=== PATIENT | male | born 1935 | race Asian ===

== ENCOUNTER 2022-04-27 19:35 | Emergency (ER) | payer MEDICARE, SELFPAY ==
--- NOTE | ~2022-04-27 | CT_ITS ---
EXAMINATION: CT HEAD WITHOUT CONTRAST (STROKE PROTOCOL) CLINICAL INFORMATION: Stroke protocol. Neurologic deficit COMPARISON: CT head 10/05/2014 TECHNIQUE: Contiguous axial imaging was performed from the skull base to vertex without intravenous administration of contrast. Coronal and sagittal reformatted images are performed at CT scanner This CT examination was performed using dose optimization techniques as appropriate, variously including the following: *Automated exposure control *Adjustment of mA and/or kV according to patient size (this includes techniques or standardized protocols for targeted exams where dose is matched to indication/reason for exam; i.e. extremities or head) *Use of iterative reconstruction technique DLP: 670 mGy-cm FINDINGS: There is a right frontal subdural collection measures approximately 1.5 cm transverse, axial image /32 series 3. This is primarily low in attenuation but does have small areas of high attenuation consistent with an acute on chronic subdural collection. This causes mass effect upon the adjacent frontal lobe. There is however no significant midline shift. There is generalized atrophy with mild prominence of the ventricles and sulci. There is mild hypodensity the periventricular white matter chronic small vessel ischemic disease. 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 No intracranial hemorrhage. No hydrocephalus. The visualized sinuses and middle ears and mastoid air cells show no significant mucosal thickening. There are no air-fluid levels. CT/CT head for stroke IMPRESSION: Right frontal subdural collection causing mass effect upon the right frontal lobe. 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 This critical result was discussed with Dr. Nunes. at 8:00 PM on 04/27/2022. It was ascertained that the content and urgency of the report was understood at the time of direct communication.
--- NOTE | ~2022-04-27 | CT_ITS ---
CT CERVICAL SPINE WITHOUT CONTRAST CLINICAL INFORMATION: Frequent falls. COMPARISON: None available. TECHNIQUE: Multidetector CT acquisition of the cervical spine obtained without contrast. This CT examination was performed using dose optimization techniques as appropriate, variously including the following: *Automated exposure control *Adjustment of mA and/or kV according to patient size (this includes techniques or standardized protocols for targeted exams where dose is matched to indication/reason for exam; i.e. extremities or head) *Use of iterative reconstruction technique FINDINGS: Reversal of the cervical lordosis. Mild degenerative appearing anterior subluxation of C7 on T1. Vertebral body heights are maintained. Moderate to severe disc volume loss at C4-C5, C5-C6, and C6-C7. Multilevel disc osteophyte and advanced multilevel hypertrophic facet arthropathy. No acute fractures no acute subluxations. Chronic appearing ossification of the ligamentum nuchae at C5. Craniocervical junction is intact. Imaged upper lungs are clear. Atherosclerotic calcification involving the carotid bifurcations bilaterally. There is no prevertebral soft tissue swelling. CT/CT cervical spine wo con IMPRESSION: No acute osseous findings within the cervical spine. Reversal of the cervical lordosis and advanced multilevel cervical spondylosis.
--- NOTE | 2022-04-27 19:43 | ECG_ITS ---
Test Reason : STROKE Blood Pressure : / mmHG Vent. Rate : 093 BPM Atrial Rate : 093 BPM P-R Int : 160 ms QRS Dur : 074 ms QT Int : 370 ms P-R-T Axes : 055 037 033 degrees QTc Int : 460 ms Sinus rhythm with occasional Premature ventricular complexes Left atrial enlargement Left ventricular hypertrophy ( Jeff product ) Inferior infarct , age undetermined Abnormal ECG When compared with ECG of 05-OCT-2016 10:13, Premature ventricular complexes are now Present Inferior infarct is now Present ST no longer depressed in Inferior leads Referred By: Sherlyn Nunes Electronically Signed By:FAIZAN HICKS
--- NOTE | 2022-04-27 19:53 | ED.NEUROSD ---
HPI - Neuro Symptoms/Deficit General Stated Complaint: STROKE ALERT Time Seen by Provider: 04/27/22 19:42 Source: patient, family, EMS and shaper set up operator (daughter interpreted georgian for me) Mode of arrival: EMS Limitations: altered mental status History of Present Illness HPI Narrative: 86 yo male with hx of HTN, dementia only on aspirin and not compliant with BP medications - noted L sided weakness and speech disturbance yesterday AM. He has been falling at home as well multiple times per the daughter. He takes no blood thinners. Onset (ago): hour(s) (30) Timing confirmed by: family member Location: speech, left face, dysarthria, left arm and left leg History of same: No Severity: moderate Quality: weak Relieving factors: none Exacerbating factors: none Context: sudden onset On Anticoagulants: No Associated symptoms: malaise Treatments Prior to Arrival: none Related Data Allergies Allergy/AdvReac Type Severity Reaction Status Date / Time Sulfa (Sulfonamide Allergy Unknown UNKNOWN Unverified 05/26/20 15:08 Antibiotics) [SULFA (SULFONAMIDE ANTIBIOTICS)] Review of Systems Review of Systems: ROS unable to be obtained due to altered mental status [facility] Past Medical History Attestation statement: The following information was validated with the patient. Medical History Dementia HTN (hypertension) Social History Social History (Updated 04/27/22 @ 20:06 by Sherlyn Nunes DO) Patient Tobacco Use Status: Never used Tobacco Advance Directives: No Physical Exam Vital Signs: Appearance: Alert. Confused has dementia. Mild acute distress. Eyes: Pupils equal, round and reactive to light. ENT: Pharynx normal. Neck: Normal inspection. Neck supple. CVS: Normal heart rate and rhythm. Pulses normal. Respiratory: No respiratory distress. Breath sounds normal. Abdomen: Soft and nontender. Skin: Skin warm and dry. Normal skin color. Normal skin turgor. Extremities: No lower extremity edema. No calf ttp Neuro: Oriented X 3. No motor deficit. No sensory deficit. 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 Wagner MDM - Neuro Symptoms/Deficit MDM Narrative Medical decision making narrative: 86 yo male georgian speaking male here with his daughter reportedly has been non compliant with HTN meds also only on ASA - here with L sided deficits since yesterday AM and some dysarthria per the daughter ( noted all symptoms started yesterday). He has been falling at home as well a lot per the daughter. Not on blood thinners. Sent straight to ED for stroke protocol concern for hemorrhage vs ischemic stroke. Not in treatment windows for tPa or thrombectomy given window is 30 hours - family aware. Labs and EKG ordered. ECG Data Attestation: I personally reviewed and interpreted this ECG as follows: ECG interpretation date: 04/27/22 ECG interpretation time: 20:05 Interpretation: Rate: 93 Rhythm: NSR with PVCs [place]: normal LVH Normal P waves. Normal LULA. Normal QRS complex. ST T wave : normal no REYNA qTC: normal prior studies: no acute ischemia The study has been interpreted contemporaneously by me. . NIH Stroke Scale Internal: Initial- Upon Arrival Level of Consciousness: Not Alert; but arousable by minor stimulation Level of Consciousness Questions: Answers one question correctly Level of Consciousness Commands: Performs both tasks correctly Best Gaze: Normal Visual: No visual loss Facial Palsy: Minor paralyis Motor Arm (Right): No drift Motor Arm (Left): Some effort against gravity Motor Leg (Right): No drift Motor Leg (Left): Some effort against gravity Limb Ataxia: Absent Sensory: Normal Best Language: No aphasia Dysarthia: Mild to moderate dysarthria Extinction and Inattention: No abnormality Score: 8 Critical Care Time Critical Care Time Critical Care Time: Yes Total Critical Care Time: 35 Attestation: discussion with family, transfer to tertiary center I attest to this time spent taking care of the patient Discharge Plan Discharge Clinical Impression: Acute subdural hematoma Patient Disposition: [facility] Transfer Details: [facility]
[2022-04-27 19:54] VITALS: BP 159/89; BP 160/90; PULSE 70; PULSE 92; RESP 18; TEMP 36.9; O2SAT 96; O2SAT 97; BMI 21.8
[2022-04-27 20:01] LABS: Prothrombin Time Whole Bld POC 13.7 sec (11.1-13.5); ~PT, ~INR - Anti Coag Clinic 1.1 (0.9-1.1)
[2022-04-27 20:06] LABS: Glucose, Whole Blood 89 mg/dL (60-115)
[2022-04-27 20:16] LABS: MANUAL DIFF FLAG NO
[2022-04-27 20:17] LABS: Basophils Absolute Auto 0.1 X10*3/uL (0.0-0.2); Basophils Percent Auto 0.8 % (0-2); Eosinophils Absolute Auto 0.1 X10*3/uL (0.0-0.4); Eosinophils Percent Auto 0.6 % (0-4); Hematocrit 51.2 % (42.0-52.0); Hemoglobin 17.2 g/dl (14.0-18.0); Imm Gran Pct Auto 6.3 % (0.0-0.4); Lymphocytes Absolute Auto 2.1 X10*3/uL (1.2-4.9); Lymphocytes Percent Auto 26.7 % (20-40); Mean Corpuscular HGB Conc 33.6 g/dl (31.0-36.0); Mean Corpuscular Hemoglobin 27.3 pg (27.0-33.0); Mean Corpuscular Volume 81.4 fL (80.0-98.0); Mean Platelet Volume 10.6 fL (9.4-12.4); Monocytes Absolute Auto 1.8 X10*3/uL (0.1-1.2); Monocytes Percent Auto 22.8 % (2-11); Neutrophils Absolute Auto 3.4 x10*3/uL (2.0-8.3); Neutrophils Percent Auto 42.8 % (45-73); Platelet Count 317 X10*3/uL (160-400); Red Blood Count 6.29 X10*6/uL (4.60-5.80); Red Cell Distribution Width 18.9 % (11.0-16.0); SCAN SMEAR FLAG 1; White Blood Count 7.9 X10*3/uL (4.8-10.8)
--- NOTE | 2022-04-27 20:23 | PC.NURSE ---
This US/Pct called [facility] Transfer line at 2000 per . At 2005 accepted pt ER to ER. Action called at 2009 for a Stat ALS Trauma transfer to [facility]. EMS arrived for transport at 2021.Winsome aware
[2022-04-27 20:24] LABS: Prothrombin Time 11.9 SEC (10.0-13.1)
[2022-04-27 20:25] LABS: COVID-19 Test Negative (Negative); IDNOW Serial# 55D5AD1C
[2022-04-27 20:26] LABS: Partial Thromboplastin Time 33.7 SEC (26.0-36.4)
[2022-04-27 20:35] VITALS: BP 157/88; PULSE 91; RESP 18; O2SAT 96
[2022-04-27 20:48] LABS: Troponin-I High Sensitivity 12.3 ng/L (<3.5-35.0)
[2022-04-28 05:18] LABS: Estimated Average Glucose 120 mg/dL; Hemoglobin A1c % 5.8 %
== END 2022-04-27 20:40 | disposition short-term general hospital (02) ==
PROVIDERS: Emergency Provider Emergency Medicine; PCP Family Medicine
DX: I62.01 Nontraumatic acute subdural hemorrhage (principal); R47.1 Dysarthria and anarthria; R29.708 NIHSS score 8; M54.2 Cervicalgia; Z20.822 Contact with and (suspected) exposure to COVID-19; Z79.899 Other long term (current) drug therapy
CPT/HCPCS: 70450; 72125; 82947; 83036; 84484; 85025; 85610; 85730; 87635; 93005; 99285

== ENCOUNTER 2022-10-13 17:34 | Inpatient (IN) | payer MEDICARE, SELFPAY ==
--- NOTE | ~2022-10-13 | CT_ITS ---
Indication: Fall EXAMINATION: CT brain, CT cervical spine Comparison previous dated 04/27/2022. Axial imaging with coronal and sagittal reformatted images. This CT examination was performed using dose optimization techniques as appropriate, variously including the following: *Automated exposure control *Adjustment of mA and/or kV according to patient size (this includes techniques or standardized protocols for targeted exams where dose is matched to indication/reason for exam; i.e. extremities or head) *Use of iterative reconstruction technique. Radiation dose 1112. CT brain; There is no midline shift. There is no mass effect. There is no hemorrhage. Mild hygromas bilaterally. Atrophy and white matter ischemic changes noted. No evidence for an acute fracture on the bone windows. CT cervical spine; Partially imaged lesion in the right upper lung. 2.1 x 1.5 cm. Malignancy needs to be suspected. Reversal of the normal cervical lordosis. Similar to previous. Likely chronic. Degenerative changes in the cervical spine. No acute fracture or dislocation. CT/CT cervical spine wo IV con IMPRESSION: Negative acute noncontrast CT the brain. No acute fracture or dislocation of the cervical spine. Partial visualization of a probable right upper lung lesion. CT of the chest is recommended. This may be done an outpatient basis. Malignancy needs to be considered.
--- NOTE | ~2022-10-13 | CT_ITS ---
EXAMINATION: CT CHEST WITHOUT CONTRAST CLINICAL INFORMATION: Chest lesion COMPARISON: Cervical spine CT same day TECHNIQUE: Multidetector volumetric CT imaging of the chest was done. Axial MIP volume rendering provided. Sagittal and coronal reformatted images were obtained. This CT examination was performed using dose optimization techniques as appropriate, variously including the following: *Automated exposure control *Adjustment of mA and/or kV according to patient size (this includes techniques or standardized protocols for targeted exams where dose is matched to indication/reason for exam; i.e. extremities or head) *Use of iterative reconstruction technique DLP: 225 mGy-cm FINDINGS: The thoracic inlet is felt to be within normal limits. This is a noncontrast study. Difficult to evaluate the hilar regions. There is some mild mediastinal adenopathy. Precarinal node measuring 1.1 cm. Mild subcarinal adenopathy. Coronary calcifications are noted. Partially imaged upper abdominal structures grossly unremarkable. Vascular calcifications are seen. Imaging of the lung hernandez. Right lung; Exam confirms right upper lung density. Margins are spiculated. Tumor needs to be suspected. Measures 2 x 1.4 cm. Another area of concern adjacent to the major fissure on image 203. This is tenting the fissure. Mixed solid and groundglass component. Measures 1.6 x 1.5 cm. Motion degrades this study especially at the bases. Mild opacity posterior medial on image 329. Other Scattered small areas of micronodularity Left lung; Again motion degrades this study. Limited evaluation at the bases. There does appear to be some left basilar atelectasis. Review of the bone windows does not demonstrate suspicion for a lesion. CT/CT chest wo IV con IMPRESSION: This exam is abnormal. Right upper lung lesion which appears spiculated. Malignancy needs to be suspected. There is also an area of concern lower in the upper lung zone adjacent the minor fissure. Malignant seen here cannot be excluded. Some mild central adenopathy could be reactive but malignancy also would be in the differential. Recommendation is PET/CT to further evaluate.
--- NOTE | ~2022-10-13 | XR_ITS ---
EXAMINATION: XR CHEST CLINICAL INFORMATION: Fall COMPARISON: 10/05/2016 TECHNIQUE: Frontal view of the chest was obtained. FINDINGS: Heart size within normal limits. The lungs are hypoexpanded. Some right mid lung and left basilar atelectasis is present. No focal consolidations or pleural effusions. No pneumothorax. The bony thorax is unremarkable without evidence of fracture. XR/XR chest 1V IMPRESSION: No acute intrathoracic disease.
--- NOTE | ~2022-10-13 | CT_ITS ---
Indication: Fall EXAMINATION: CT brain, CT cervical spine Comparison previous dated 04/27/2022. Axial imaging with coronal and sagittal reformatted images. This CT examination was performed using dose optimization techniques as appropriate, variously including the following: *Automated exposure control *Adjustment of mA and/or kV according to patient size (this includes techniques or standardized protocols for targeted exams where dose is matched to indication/reason for exam; i.e. extremities or head) *Use of iterative reconstruction technique. Radiation dose 1112. CT brain; There is no midline shift. There is no mass effect. There is no hemorrhage. Mild hygromas bilaterally. Atrophy and white matter ischemic changes noted. No evidence for an acute fracture on the bone windows. CT cervical spine; Partially imaged lesion in the right upper lung. 2.1 x 1.5 cm. Malignancy needs to be suspected. Reversal of the normal cervical lordosis. Similar to previous. Likely chronic. Degenerative changes in the cervical spine. No acute fracture or dislocation. CT/CT head/brain wo IV con IMPRESSION: Negative acute noncontrast CT the brain. No acute fracture or dislocation of the cervical spine. Partial visualization of a probable right upper lung lesion. CT of the chest is recommended. This may be done an outpatient basis. Malignancy needs to be considered.
--- NOTE | 2022-10-13 17:36 | ED_ITS ---
HPI - Fall General Chief Complaint: Fall Stated Complaint: Fall(w/ head strike), cath issue post fall per EMS Time Seen by Provider: 10/13/22 17:36 Source: patient, family and EMS Mode of arrival: EMS Limitations: language barrier and physical limitation (Dementia) History of Present Illness HPI Narrative: 87-year-old male presents via EMS for multiple falls and low volume output from suprapubic Mcguire. Patient is unable to make his needs known, has dementia, and speaks Algerian. complaint: fall Fall from: standing Fall witnessed: yes, by family Place fall occurred: home Loss of consciousness: none Prolonged down time: no Context: tripped/slipped Location of injury: head Severity: moderate Related Data Home Medications Medication Instructions Recorded Confirmed amlodipine 5 mg tablet 1 tab PO DAILY 10/14/22 10/14/22 atenolol 50 mg tablet 1 tab PO DAILY 10/14/22 10/14/22 atorvastatin 40 mg tablet 1 tab PO DAILY 10/14/22 10/14/22 hydrochlorothiazide 25 mg tablet 1 tab PO DAILY 10/14/22 10/14/22 tamsulosin 0.4 mg capsule 2 cap PO DAILY 10/14/22 10/14/22 trazodone 50 mg tablet 1 tab PO BEDTIME 10/14/22 10/14/22 Allergies Allergy/AdvReac Type Severity Reaction Status Date / Time Sulfa (Sulfonamide Allergy Unknown UNKNOWN Verified 10/14/22 01:12 Antibiotics) [SULFA (SULFONAMIDE ANTIBIOTICS)] Review of Systems Review of Systems: Yes Unobtainable due to mental status (Dementia per baseline) [facility] Past Medical History Attestation statement: The following information was validated with the patient. Source: old records reviewed Medical History Dementia HTN (hypertension) Social History Social History Alcohol intake: never Patient Tobacco Use Status: Never used Tobacco Smoked in Last 30 Days: No Use of substances other than those prescribed or required for medical reasons: No Advance Directives: No Advance Directives Information Provided: No Physical Exam Vital Signs: Vital Signs: Last Vital Signs Temp 98.3 F 10/14/22 00:00 Pulse 81 10/14/22 00:00 Resp 13 10/14/22 00:00 BP 110/70 10/14/22 00:00 Pulse Ox 96 10/14/22 00:00 O2 Del Method 10/14/22 00:00 BMI result Body Mass Index 24.9 Appearance: Alert. No apparent distress. Eyes: Pupils equal, round and reactive to light. ENT: Pharynx normal. Neck: Normal inspection. Neck supple. CVS: Normal heart rate and rhythm. Pulses normal. Respiratory: No respiratory distress. Breath sounds normal. Abdomen: Soft and nontender. Suprapubic Mcguire noted. Stoma site intact. Skin: Skin warm and dry. Normal skin color. Normal skin turgor. Extremities: Moves all extremities against resistance. Neuro: No motor deficit. No sensory deficit. Cranial nerves intact. Course Course Course Narrative: 87-year-old male presents via EMS for fall with head strike in C-collar, and low volume output for suprapubic Mcguire. Bedside bladder scan completed indicates high volume, suprapubic Mcguire changed to 16 Bengali, balloon filled with 10 mL of sterile water, 1300 mL output. Urine is clear yellow with sediment. Plan of care is for CT scan of head and cervical spine, chest x-ray, labs, ACS workup, and urinalysis. Patient does have a prior history of subdural bleed. Patient's son is at bedside and is able to answer questions, patient is unable to answer any questions at this time. He is able to indicate if he is in pain or not. 19:22 C-spine cleared. Collar removed. White count 12.9, sodium 130, BUN 37, creatinine 1.71. Urinalysis positive for nitrites, leukocyte esterase, no prior cultures available. COVID influenza RSV are negative. Will treat for UTI. CT cervical spine indicates possible lesions in the lungs consistent carcinoma. Will order CT scan of chest. Patient is not septic at this time. 20:13 discussion with hospitalist, plan of care is to admit for UTI, order for chest CT secondary to the finding on the cervical spine CT indicating pos sibility for malignancy. Consultations Consultation #1: Domingo Medications Administered Generic Name Dose Route Start Last Admin Trade Name Freq PRN Reason Stop Dose Admin Enoxaparin Sodium 30 mg 10/13/22 21:00 10/13/22 22:15 Enoxaparin Sodium 30 Mg/0.3 Ml Syringe SUBCUT 30 mg Q24H ANGELA Administration Ceftriaxone Sodium 1 gm/ 50 mls @ 100 mls/hr 10/13/22 21:00 10/13/22 20:26 Sodium Chloride IV Infused Q24H ANGELA Infusion Discontinued Medications Generic Name Dose Route Start Last Admin Trade Name Freq PRN Reason Stop Dose Admin Sodium Chloride 1,000 mls @ 999 mls/hr 10/13/22 20:00 10/13/22 21:12 Ns IVCONT 10/13/22 21:00 Infused .Q1H1M ANGELA Infusion Medical Decision Making Differential Diagnosis Differential Diagnoses: The differential diagnosis associated with the presentation includes UTI, Admission/Observation Consideration of admission/observation: Escalation of care including admission/observation considered Patient requires admission Consult Healthcare Provider Management of the patient was discussed with: Hospitalist Lab Data [facility] Lab Attestation statement: I reviewed the patient's lab results. 10/13/22 19:04 10/13/22 19:04 Labs: Lab Results 10/13/22 10/13/22 10/13/22 Range/Units 19:04 19:04 19:04 WBC 12.9 H (4.8-10.8) X10*3/uL RBC 5.59 (4.60-5.80) X10*6/uL Hgb 14.8 (14.0-18.0) g/dl Hct 45.1 (42.0-52.0) % MCV 80.7 (80.0-98.0) fL MCH 26.5 L (27.0-33.0) pg MCHC 32.8 (31.0-36.0) g/dl RDW 14.8 (11.0-16.0) % Plt Count 350 (160-400) X10*3/uL MPV 10.2 (9.4-12.4) fL Immature Gran % (Auto) Cancelled Neut % (Auto) Cancelled Lymph % (Auto) Cancelled [place] % (Auto) Cancelled Eos % (Auto) Cancelled Baso % (Auto) Cancelled Lymph # (Auto) Cancelled [place] # (Auto) Cancelled Eos # (Auto) Cancelled Baso # (Auto) Cancelled Abs Immat Gran (auto) Cancelled Absolute Neuts (auto) Cancelled Absolute Nucleated RBC 0.000 (0.0-0.012) X10*3/uL Nucleated RBC % (auto) 0.0 (0.0-0.2) /100WBC Neutrophils % (Manual) 75 H (45-73) % Band Neutrophils % 2 L (3-5) % Lymphocytes % (Manual) 7 L (20-40) % Monocytes % (Manual) 15 H (2-11) % Metamyelocytes % 1 % Abs Neuts (Manual) 9.9 H (2.0-8.3) X10*3/uL Lymphocytes # (Manual) 0.9 L (1.2-4.9) X10*3/uL Monocytes # (Manual) 1.9 H (0.1-1.2) X10*3/uL Metamyelocytes # 0.1 X10*3/uL Platelet Estimate NORMAL (NORMAL) Plt Morphology Comment NORMAL RBC Morphology NOTED Polychromasia 1+ (0-2) /OIF Sodium 130 L (135-145) mmol/L Potassium 4.0 (3.3-5.1) mmol/L Chloride 96 (96-108) mmol/L Carbon Dioxide 22 (22-29) mmol/L Anion Gap 16 (12-20) BUN 37 H (9-16) mg/dL Creatinine 1.71 H (0.5-1.4) mg/dL Estim Creat Clear Calc 27.9 Estimated GFR 38 Random Glucose 108 (60-115) mg/dL Calcium 9.5 (8.4-10.2) mg/dL Troponin I High Sens 10.5 (<3.5-35.0) ng/L Urine Color Urine Appearance Urine pH (5.0-9.0) Ur Specific [place] (1.005-1.025) Urine Protein (Neg-Trace) mg/dL Urine Glucose (UA) (Negative) mg/dL Urine Ketones (Negative) mg/dL Urine Blood (Negative) Urine Nitrite (Negative) Ur Leukocyte Esterase (Negative) Urine RBC (0-2) /HPF Urine WBC (0-5) /HPF Ur Squamous Epith Cells (0-2) /HPF Urine Bacteria (None Seen) Hyaline Casts (0-2) /LPF COVID-19 (MARICRUZ) (Negative) COVID-19 Clin Com Influenza Type A (BRIAN) (Negative) Influenza Type B (BRIAN) (Negative) Influenza A & B Note 10/13/22 10/13/22 10/13/22 Range/Units 19:04 19:04 19:04 WBC (4.8-10.8) X10*3/uL RBC (4.60-5.80) X10*6/uL Hgb (14.0-18.0) g/dl Hct (42.0-52.0) % MCV (80.0-98.0) fL MCH (27.0-33.0) pg MCHC (31.0-36.0) g/dl RDW (11.0-16.0) % Plt Count (160-400) X10*3/uL MPV (9.4-12.4) fL Immature Gran % (Auto) Neut % (Auto) Lymph % (Auto) [place] % (Auto) Eos % (Auto) Baso % (Auto) Lymph # (Auto) [place] # (Auto) Eos # (Auto) Baso # (Auto) Abs Immat Gran (auto) Absolute Neuts (auto) Absolute Nucleated RBC (0.0-0.012) X10*3/uL Nucleated RBC % (auto) (0.0-0.2) /100WBC Neutrophils % (Manual) (45-73) % Band Neutrophils % (3-5) % Lymphocytes % (Manual) (20-40) % Monocytes % (Manual) (2-11) % Metamyelocytes % % Abs Neuts (Manual) (2.0-8.3) X10*3/uL Lymphocytes # (Manual) (1.2-4.9) X10*3/uL Monocytes # (Manual) (0.1-1.2) X10*3/uL Metamyelocytes # X10*3/uL Platelet Estimate (NORMAL) Plt Morphology Comment RBC Morphology Polychromasia /OIF Sodium (135-145) mmol/L Potassium (3.3-5.1) mmol/L Chloride (96-108) mmol/L Carbon Dioxide (22-29) mmol/L Anion Gap (12-20) BUN (9-16) mg/dL Creatinine (0.5-1.4) mg/dL Estim Creat Clear Calc Estimated GFR Random Glucose (60-115) mg/dL Calcium (8.4-10.2) mg/dL Troponin I High Sens (<3.5-35.0) ng/L Urine Color Yellow Urine Appearance Cloudy Urine pH 7.5 (5.0-9.0) Ur Specific [place] 1.015 (1.005-1.025) Urine Protein 100 (2+) H (Neg-Trace) mg/dL Urine Glucose (UA) Negative (Negative) mg/dL Urine Ketones Negative (Negative) mg/dL Urine Blood Small (1+) H (Negative) Urine Nitrite Positive H (Negative) Ur Leukocyte Esterase Large (3+) H (Negative) Urine RBC 3-5 H (0-2) /HPF Urine WBC >50 H (0-5) /HPF Ur Squamous Epith Cells 0-2 (0-2) /HPF Urine Bacteria 4+ (None Seen) Hyaline Casts 6-10 (0-2) /LPF COVID-19 (MARICRUZ) Negative (Negative) COVID-19 Clin Com See Note Influenza Type A (BRIAN) Negative (Negative) Influenza Type B (BRIAN) Negative (Negative) Influenza A & B Note See Note Independent Interpretation I performed an independent interpretation of an: EKG, Plain X-Ray and CT Scan Interpretation: Sinus tachycardia Left atrial enlargement Nonspecific ST abnormality Abnormal ECG When compared with ECG of 27-APR-2022 19:48, Premature ventricular complexes are no longer Present Vent. rate 102 BPM IA interval 186 ms QRS duration 84 ms QT/QTc 362/471 ms P-R-T axes 69 41 52 13-OCT-2022 17:53:41 Radiology Impression Discussion of test interpretation with radiology: I have reviewed the radiologist's reading. Radiologist Impression: CT brain; There is no midline shift. There is no mass effect. There is no hemorrhage. Mild hygromas bilaterally. Atrophy and white matter ischemic changes noted. No evidence for an acute fracture on the bone windows. CT cervical spine; Partially imaged lesion in the right upper lung. 2.1 x 1.5 cm. Malignancy needs to be suspected. Reversal of the normal cervical lordosis. Similar to previous. Likely chronic. Degenerative changes in the cervical spine. No acute fracture or dislocation. CT/CT head/brain wo IV con IMPRESSION: Negative acute noncontrast CT the brain. ? No acute fracture or dislocation of the cervical spine. ? Partial visualization of a probable right upper lung lesion. CT of the chest is recommended. This may be done an outpatient basis. Malignancy needs to be considered. FINDINGS: The thoracic inlet is felt to be within normal limits. This is a noncontrast study. Difficult to evaluate the hilar regions. There is some mild mediastinal adenopathy. Precarinal node measuring 1.1 cm. Mild subcarinal adenopathy. Coronary calcifications are noted. Partially imaged upper abdominal structures grossly unremarkable. Vascular calcifications are seen. Imaging of the lung hernandez. Right lung; Exam confirms right upper lung density. Margins are spiculated. Tumor needs to be suspected. Measures 2 x 1.4 cm. Another area of concern adjacent to the major fissure on image 203. This is tenting the fissure. Mixed solid and groundglass component. Measures 1.6 x 1.5 cm. Motion degrades this study especially at the bases. Mild opacity posterior medial on image 329. Other Scattered small areas of micronodularity Left lung; Again motion degrades this study. Limited evaluation at the bases. There does appear to be some left basilar atelectasis. Review of the bone windows does not demonstrate suspicion for a lesion. CT/CT chest wo IV con IMPRESSION: This exam is abnormal. Right upper lung lesion which appears spiculated. Malignancy needs to be suspected. There is also an area of concern lower in the upper lung zone adjacent the minor fissure. Malignant seen here cannot be excluded. ? Some mild central adenopathy could be reactive but malignancy also would be in the differential. ? Recommendation is PET/CT to further evaluate. EXAMINATION: XR CHEST CLINICAL INFORMATION: Fall COMPARISON: 10/05/2016 TECHNIQUE: Frontal view of the chest was obtained. FINDINGS: Heart size within normal limits. The lungs are hypoexpanded. Some right mid lung and left basilar atelectasis is present. No focal consolidations or pleural effusions. No pneumothorax. The bony thorax is unremarkable without evidence of fracture. XR/XR chest 1V IMPRESSION: No acute intrathoracic disease. ? Independent Historian Clinical information obtained from an independent historian. History obtained from or confirmed by: Other External Record Review External record reviewed: Outpatient record and Prior outpatient labs Prescription Management I considered prescription management with: Antibiotic Chronic Conditions Patient?s care impacted by: Other (Dementia) Social Determinants Patient?s care significantly limited by Social Determinants of Health including: Other Social Determinant of Health Critical Care Time Critical Care Time Critical Care Time: Yes Total Critical Care Time: 45 Attestation: I have personally provided critical care time exclusive of time spent on separately billable procedures. Time includes review of laboratory data, radio logy results, discussion with consultants, and monitoring for potential decompensation. Interventions were performed as documented. Discharge Plan Discharge Clinical Impression: Concussion without loss of consciousness, Fall, Acute UTI, JORDY (acute kidney injury) Patient Disposition: Admitted As Inpatient
--- NOTE | 2022-10-13 17:40 | ECG_ITS ---
Test Reason : FALL Blood Pressure : / mmHG Vent. Rate : 102 BPM Atrial Rate : 102 BPM P-R Int : 186 ms QRS Dur : 084 ms QT Int : 362 ms P-R-T Axes : 069 041 052 degrees QTc Int : 471 ms Sinus tachycardia Left atrial enlargement Nonspecific ST abnormality Abnormal ECG When compared with ECG of 27-APR-2022 19:48, Premature ventricular complexes are no longer Present Referred By: Amparo Guillaume Electronically Signed By:Sam Eric
[2022-10-13 17:43] VITALS: BP 128/98; BP 178/88; PULSE 91; PULSE 98; RESP 14; TEMP 36.7; O2SAT 98; BMI 24.9
[2022-10-13 18:52] VITALS: BP 139/71; PULSE 97; RESP 17; O2SAT 99
--- NOTE | 2022-10-13 18:53 | PC.NURSE ---
super pubic catheter replaced after bladder scan resulted in greater than 999ml in bladder. 16F placeed with 10cc in balloon. catheter appears smaller than previously placed, family reports that a 16F was what he had in place. 1300 cc urine post simon placement. wi;ll send for u/a and culture.
[2022-10-13 19:11] LABS: Hematocrit 45.1 % (42.0-52.0); Hemoglobin 14.8 g/dl (14.0-18.0); Mean Corpuscular HGB Conc 32.8 g/dl (31.0-36.0); Mean Corpuscular Hemoglobin 26.5 pg (27.0-33.0); Mean Corpuscular Volume 80.7 fL (80.0-98.0); Mean Platelet Volume 10.2 fL (9.4-12.4); Platelet Count 350 X10*3/uL (160-400); Red Blood Count 5.59 X10*6/uL (4.60-5.80); Red Cell Distribution Width 14.8 % (11.0-16.0); White Blood Count 12.9 X10*3/uL (4.8-10.8)
[2022-10-13 19:12] LABS: Appearance Urine Cloudy; Color Urine Yellow; Glucose Urine UA Negative (Negative); Leukocyte Esterase Urine Large (3+) (Negative); Nitrite Urine Positive (Negative); PH 7.5 (5.0-9.0); Specific Gravity - Urine 1.015 (1.005-1.025); UMIC TRIGGER UACC YES; Urine Blood Small (1+) (Negative); Urine Ketones Negative (Negative); Urine Protein 100 (2+) mg/dL (Neg-Trace)
[2022-10-13 19:24] LABS: Bacteria Urine 4+ (None Seen); Squamous Epithelial Cell Urine 0-2 /HPF (0-2); UACC Culture Trigger YES; WBC Urine >50 /HPF (0-5)
[2022-10-13 19:27] LABS: Anion Gap 16 (12-20); Blood Urea Nitrogen 37 mg/dL (9-16); Calcium 9.5 mg/dL (8.4-10.2); Carbon Dioxide 22 mmol/L (22-29); Chloride 96 mmol/L (96-108); Creatinine Clr Calc Pharmacy 27.9; Estimated Glomerular Filt Rate 38; Glucose Random 108 mg/dL (60-115); Sodium 130 mmol/L (135-145)
[2022-10-13 19:35] LABS: Troponin-I High Sensitivity 10.5 ng/L (<3.5-35.0)
[2022-10-13 19:37] LABS: Band Neutrophils Percent 2 % (3-5); Lymphocytes Absolute Manual 0.9 X10*3/uL (1.2-4.9); Lymphocytes Percent Manual 7 % (20-40); Metamyelocytes Absolute 0.1 X10*3/uL; Metamyelocytes Percent 1 %; Monocytes Absolute Manual 1.9 X10*3/uL (0.1-1.2); Monocytes Percent Manual 15 % (2-11); Neutrophils Absolute Manual 9.9 X10*3/uL (2.0-8.3); Neutrophils Percent Manual 75 % (45-73)
[2022-10-13 19:38] LABS: COVID-19 Test Negative (Negative); IDNOW Serial# 16C4AD1C; IDNOW Serial# BCCEAD1C; Influenza A Negative (Negative); Influenza B2 Negative (Negative); Platelet Estimate NORMAL (NORMAL); Platelet Morphology Comment NORMAL; Polychromasia 1+ (0-2) /OIF; RBC Morphology NOTED
--- NOTE | 2022-10-13 19:42 | PC.NURSE ---
Addendum entered by Deepti Moran 10/13/22 21:34: no healthcare proxy on file, confirmed with registration; Regina instructed to bring that in when she does have one available Regina Arevalo (pt's daughter) contact info--> [phone] Original Note: assumed care of pt resting quietly while watching tv pt's daughter, Regina Arevalo, called to check on pt's results states she is pt's healthcare proxy- will verify
[2022-10-13] MEDS: 0.9 % Sodium Chloride 1,000 ML 999 ML IVCONT (19:45)
[2022-10-13] MEDS: cefTRIAXone sodium 1 GM in 0.9 % Sodium Chloride 50 ML IV (19:45)
--- NOTE | 2022-10-13 20:59 | PM.IMHP ---
History of Present Illness Date of Service: 10/13/22 Chief Complaint: Fall This is a 87-year-old male with pertinent history of essential hypertension, mood disorder, mixed hyperlipidemia, s/p suprapubic catheter, dementia was brought to the emergency department for evaluation after a fall. Patient is a poor historian and does not know why he is here. History was obtained by EMS and ER provider. Son was here earlier at the bedside as per ER provider, prior to my evaluation. Patient apparently had 2 episodes of fall and he was brought here to the ER. Unclear if he lost consciousness or had rhythmic jerking movement of extremities. Unable to obtain review of systems. In the emergency department, bladder scan revealed greater than 1 L urine and suprapubic catheter was replaced Review of Systems Review of Systems: Yes Unobtainable due to mental condition PMFSH Medical History Dementia HTN (hypertension) Pertinent family history: Not significant due to age Social History Alcohol intake: never Patient Tobacco Use Status: Never used Tobacco Smoked in Last 30 Days: No Use of substances other than those prescribed or required for medical reasons: No Advance Directives: No Advance Directives Information Provided: No Meds Allergies Allergy/AdvReac Type Severity Reaction Status Date / Time Sulfa (Sulfonamide Allergy Unknown UNKNOWN Unverified 05/26/20 15:08 Antibiotics) [SULFA (SULFONAMIDE ANTIBIOTICS)] Active Medications: Current Medications Acetaminophen (Acetaminophen 325 Mg Tablet) 650 mg PO Q6H PRN PRN Reason: Pain, Mild (Pain Scale 1-3) Enoxaparin Sodium (Enoxaparin Sodium 30 Mg/0.3 Ml Syringe) 30 mg SUBCUT Q24H ANGELA Sodium Chloride (Ns) 1,000 mls @ 999 mls/hr IVCONT .Q1H1M ANGELA Stop: 10/13/22 21:00 Ceftriaxone Sodium 1 gm/ (Sodium Chloride) 50 mls @ 100 mls/hr IV Q24H ANGELA Melatonin (Melatonin 3 Mg Tablet) 6 mg PO BEDTIME PRN PRN Reason: Insomnia Ondansetron HCl (Ondansetron Hcl 4 Mg/2 Ml Vial) 4 mg IVPUSH Q8H PRN PRN Reason: Nausea and Vomiting Sodium Chloride (0.9 % Sodium Chloride Flush 3 Ml Syringe) 3 ml IVFLUSH QSHIFT ANGELA Physical Exam Vital Signs and Narrative: Vital Signs: Last Vital Signs Temp 98.1 F 10/13/22 17:43 Pulse 97 10/13/22 18:52 Resp 17 10/13/22 18:52 BP 139/71 10/13/22 18:52 Pulse Ox 99 10/13/22 18:52 O2 Del Method 10/13/22 18:52 BMI result Body Mass Index 24.9 Elderly male lying in bed in no distress Neck supple, no JVD Regular rate and rhythm, S1-S2 heard Regular breath sounds bilaterally, no wheezing or crackles appreciated Abdomen soft nontender, no guarding, no rigidity, suprapubic in place Patient is awake, alert and oriented to self, disoriented to place, time and person ; no focal motor deficit Psych: Normal mood No pedal edema Results Labs 10/13/22 19:04 10/13/22 19:04 Labs: Laboratory Results - last 24 hr 10/13/22 10/13/22 10/13/22 19:04 19:04 19:04 MCV 80.7 MCH 26.5 L MCHC 32.8 RDW 14.8 Plt Count 350 MPV 10.2 Immature Gran % (Auto) Cancelled Neut % (Auto) Cancelled Lymph % (Auto) Cancelled [place] % (Auto) Cancelled Eos % (Auto) Cancelled Baso % (Auto) Cancelled Lymph # (Auto) Cancelled [place] # (Auto) Cancelled Eos # (Auto) Cancelled Baso # (Auto) Cancelled Abs Immat Gran (auto) Cancelled Absolute Neuts (auto) Cancelled Absolute Nucleated RBC 0.000 Nucleated RBC % (auto) 0.0 Neutrophils % (Manual) 75 H Band Neutrophils % 2 L Lymphocytes % (Manual) 7 L Monocytes % (Manual) 15 H Metamyelocytes % 1 Abs Neuts (Manual) 9.9 H Lymphocytes # (Manual) 0.9 L Monocytes # (Manual) 1.9 H Metamyelocytes # 0.1 Platelet Estimate NORMAL Plt Morphology Comment NORMAL RBC Morphology NOTED Polychromasia 1+ (0-2) Anion Gap 16 Estim Creat Clear Calc 27.9 Estimated GFR 38 Random Glucose 108 Calcium 9.5 Troponin I High Sens 10.5 Urine Color Urine Appearance Urine pH Ur Specific [place] Urine Protein Urine Glucose (UA) Urine Ketones Urine Blood Urine Nitrite Ur Leukocyte Esterase Urine RBC Urine WBC Ur Squamous Epith Cells Urine Bacteria Hyaline Casts COVID-19 (MARICRUZ) COVID-19 Clin Com Influenza Type A (BRIAN) Influenza Type B (BRIAN) Influenza A & B Note 10/13/22 10/13/22 10/13/22 19:04 19:04 19:04 MCV MCH MCHC RDW Plt Count MPV Immature Gran % (Auto) Neut % (Auto) Lymph % (Auto) [place] % (Auto) Eos % (Auto) Baso % (Auto) Lymph # (Auto) [place] # (Auto) Eos # (Auto) Baso # (Auto) Abs Immat Gran (auto) Absolute Neuts (auto) Absolute Nucleated RBC Nucleated RBC % (auto) Neutrophils % (Manual) Band Neutrophils % Lymphocytes % (Manual) Monocytes % (Manual) Metamyelocytes % Abs Neuts (Manual) Lymphocytes # (Manual) Monocytes # (Manual) Metamyelocytes # Platelet Estimate Plt Morphology Comment RBC Morphology Polychromasia Anion Gap Estim Creat Clear Calc Estimated GFR Random Glucose Calcium Troponin I High Sens Urine Color Yellow Urine Appearance Cloudy Urine pH 7.5 Ur Specific [place] 1.015 Urine Protein 100 (2+) H Urine Glucose (UA) Negative Urine Ketones Negative Urine Blood Small (1+) H Urine Nitrite Positive H Ur Leukocyte Esterase Large (3+) H Urine RBC 3-5 H Urine WBC >50 H Ur Squamous Epith Cells 0-2 Urine Bacteria 4+ Hyaline Casts 6-10 COVID-19 (MARICRUZ) Negative COVID-19 Clin Com See Note Influenza Type A (BRIAN) Negative Influenza Type B (BRIAN) Negative Influenza A & B Note See Note Imaging Radiologist's Impressions: Impressions Cervical Spine CT 10/13/22 18:50 IMPRESSION: Negative acute noncontrast CT the brain. No acute fracture or dislocation of the cervical spine. Partial visualization of a probable right upper lung lesion. CT of the chest is recommended. This may be done an outpatient basis. Malignancy needs to be considered. Head CT 10/13/22 18:50 IMPRESSION: Negative acute noncontrast CT the brain. No acute fracture or dislocation of the cervical spine. Partial visualization of a probable right upper lung lesion. CT of the chest is recommended. This may be done an outpatient basis. Malignancy needs to be considered. Chest X-Ray 10/13/22 19:25 IMPRESSION: No acute intrathoracic disease. Assessment and Plan (1) Acute UTI: Status: Acute Plan This is a 87-year-old male with pertinent history of essential hypertension, mood disorder, mixed hyperlipidemia, s/p suprapubic catheter, dementia was brought to the emergency department for evaluation after a fall. #. Sepsis due to acute UTI: Resuscitated with IV crystalloids in the ER. Lactic acid and blood culture obtained. Treating empirically with IV Rocephin. Follow urine culture #. Fall, ?mechanical vs other: Unclear history. CT head without any acute abnormality. #. Elevated creatinine: Acute kidney injury versus chronic kidney disease. Unknown baseline. Likely post renal in the setting of obstruction. More than 1 L urine obtained after replacing suprapubic catheter in the ER. #. Essential hypertension: Optimize and reconcile home antihypertensives #. Mixed hyperlipidemia: On statin #. Dementia, unspecified: Maintain sleep-wake cycle #. Mood disorder: On trazodone Med rec pending DVT prophylaxis: Lovenox 30 mg daily Full Code. Readdress code status with son in a.m. Cardiac diet Admit as inpatient and will require two night minimum hospital stay for IV antibiotics Time Spent With Patient Time: Total time managing care of this patient today ____ minutes. Quality Stroke Does the patient have a stroke diagnosis?: No VTE Prior VTE?: No VTE Risk Level:: Medical - moderate - high VTE Device Contraindication: Treatment Not Indicated VTE Drug Contraindication: N/A - Med Ordered
--- NOTE | 2022-10-13 21:20 | PC.NURSE ---
Addendum entered by Deepti Moran 10/14/22 02:03: incontinence of stool ; notified Dr Lane that pt's daughter stated he has diarrhea since Saturday. Original Note: soiled linens, pt not in hospital attire pt just changed over into hopital attire linens changed bed cleaned, pt cleaned est IV line 20g L forearm meds to follow (1g ceftriaxone and 1L NS)
[2022-10-13 21:37] LABS: Lactic Acid 1.2 mmol/L (0.5-2.0)
[2022-10-13] MEDS: Enoxaparin Sodium 30 MG/0.3 ML SYRINGE SUBCUT (22:15)
[2022-10-14] VITALS (12 sets, daily range): BP systolic 90–120; BP diastolic 39–81; PULSE 70–81; RESP 11–18; TEMP 36.6–37.1; O2SAT 96–98
[2022-10-14] MEDS: 0.9 % Sodium Chloride Flush 3 ML SYRINGE IVFLUSH ×3 (00:03→17:05)
--- NOTE | 2022-10-14 01:18 | PC.NURSE ---
med rec done; went over meds with pt's daughter Regina, per his permission
--- NOTE | 2022-10-14 01:21 | PC.NURSE ---
Josue Lane to inform him that, pt's daughter, Regina Arevalo would like to speak to him. Pt's daughter plans on coming in sometime later today.
--- NOTE | 2022-10-14 01:22 | PC.NURSE ---
Pt's daughter, Regina, states that pt has dementia
[2022-10-14] MEDS: 0.9 % Sodium Chloride 1,000 ML 999 ML IV (02:00)
--- NOTE | 2022-10-14 02:01 | PC.NURSE ---
hospitalist called cultures not drawn at 1948 for a admitted pt. iv antibx already given, hospitalist still wants the cultures drawn.
--- NOTE | 2022-10-14 03:44 | PC.NURSE ---
pt resting quietly while watching tv, no apparent distress; warm blanket provided and assisted pt w/ repositioning
[2022-10-14 06:27] LABS: Hematocrit 42.5 % (42.0-52.0); Hemoglobin 13.6 g/dl (14.0-18.0); Mean Corpuscular Hemoglobin 26.7 pg (27.0-33.0); Mean Corpuscular Volume 83.3 fL (80.0-98.0); Mean Platelet Volume 10.7 fL (9.4-12.4); Platelet Count 332 X10*3/uL (160-400); Red Cell Distribution Width 14.6 % (11.0-16.0)
--- NOTE | 2022-10-14 06:44 | PC.NURSE ---
vs assessed, 71 HR, 98% O2Sat, 117/69 BP
[2022-10-14 06:51] LABS: Band Neutrophils Percent 8 % (3-5); Basophils Abs Manual 0.1 X10*3/uL (0.0-0.2); Basophils Percent Manual 1 % (0-2); Lymphocytes Absolute Manual 0.6 X10*3/uL (1.2-4.9); Lymphocytes Percent Manual 6 % (20-40); Metamyelocytes Absolute 0.1 X10*3/uL; Metamyelocytes Percent 1 %; Monocytes Absolute Manual 1.6 X10*3/uL (0.1-1.2); Monocytes Percent Manual 16 % (2-11); Neutrophils Absolute Manual 7.6 X10*3/uL (2.0-8.3); Neutrophils Percent Manual 68 % (45-73)
[2022-10-14 06:52] LABS: Acanthocytes 1+ (0-2) /OIF; Anion Gap 13 (12-20); Blood Urea Nitrogen 28 mg/dL (9-16); Carbon Dioxide 25 mmol/L (22-29); Chloride 103 mmol/L (96-108); Creatinine Clr Calc Pharmacy 33.2; Estimated Glomerular Filt Rate 47; Glucose Random 73 mg/dL (60-115); Large Platelet PRESENT; Ovalocytes 1+ (5-14) /OIF; Platelet Estimate NORMAL (NORMAL); Platelet Morphology Comment NOTED; Potassium 3.7 mmol/L (3.3-5.1); RBC Morphology NOTED; Sodium 137 mmol/L (135-145); Toxic Vacuolation PRESENT
--- NOTE | 2022-10-14 06:55 | MHC.EDTECH ---
I went into the patient's room to do Orthos. Patient was fine for supine, and sitting. When he tried to stand up, He was unable to bare weight on his legs. stated he was too weak. LENY Tatum is aware - She is informing Hospitalist.
--- NOTE | 2022-10-14 07:49 | PHA.MEDREC ---
Pharmacy Consult ? Medication Reconciliation Pharmacy has completed the medication reconciliation. NURSE COMPLETED MED REC, REVIEWED
[2022-10-14] MEDS: Tamsulosin HCL 0.4 MG CAPSULE 0.8 MG PO (08:17)
[2022-10-14] MEDS: amLODIPine Besylate 5 MG TABLET PO (08:17)
[2022-10-14] MEDS: atenoloL 50 MG TABLET PO (08:17)
[2022-10-14] MEDS: hydroCHLOROthiazide 25 MG TABLET PO (08:17)
--- NOTE | 2022-10-14 08:33 | PC.NURSE ---
Resting quietly in the bed offering no complaints, call ken within reach
--- NOTE | 2022-10-14 10:17 | HO.PM.IMPN ---
Subjective Subjective Date of Service: 10/14/22 Interval History: f/u on sespis, uti, jordy speaks mostly scottish but able to get by but understand enough estonian Physical Exam Vital Signs: Vital Signs: Last Vital Signs Temp 98.3 F 10/14/22 07:35 Pulse 72 10/14/22 07:35 Resp 11 L 10/14/22 07:35 BP 105/81 10/14/22 07:35 Pulse Ox 97 10/14/22 07:35 O2 Del Method 10/14/22 07:35 BMI result Body Mass Index 24.9 Const: Other: General: AO X 2, no acute distress Resp: CTA bilateral CVS: S1,S2,RRR GI: +BS, NT, no distention Skin: No rash Neuro: motor grossly intact Psych: appropriate affect Objective Data Active Medications Acetaminophen (Acetaminophen 325 Mg Tablet) 650 mg PO Q6H PRN PRN Reason: Pain, Mild (Pain Scale 1-3) Amlodipine Besylate (Amlodipine Besylate 5 Mg Tablet) 5 mg PO DAILY [facility]; Protocol Last Admin: 10/14/22 08:17 Dose: 5 mg Documented By: SHAYY Atenolol (Atenolol 50 Mg Tablet) 50 mg PO DAILY [facility]; Protocol Last Admin: 10/14/22 08:17 Dose: 50 mg Documented By: SHAYY Atorvastatin Calcium (Atorvastatin Calcium 40 Mg Tablet) 40 mg PO BEDTIME [facility] Enoxaparin Sodium (Enoxaparin Sodium 30 Mg/0.3 Ml Syringe) 30 mg SUBCUT Q24H [facility] Last Admin: 10/13/22 22:15 Dose: 30 mg Documented By: SWAPNA Hydrochlorothiazide (Hydrochlorothiazide 25 Mg Tablet) 25 mg PO DAILY [facility]; Protocol Last Admin: 10/14/22 08:17 Dose: 25 mg Documented By: SHAYY Ceftriaxone Sodium 1 gm/ (Sodium Chloride) 50 mls @ 100 mls/hr IV Q24H [facility] Last Infusion: 10/13/22 20:26 Dose: 0 mls/hr Documented By: SWAPNA Melatonin (Melatonin 3 Mg Tablet) 6 mg PO BEDTIME PRN PRN Reason: Insomnia Ondansetron HCl (Ondansetron Hcl 4 Mg/2 Ml Vial) 4 mg IVPUSH Q8H PRN PRN Reason: Nausea and Vomiting Pharmacy Consult (Consult Rx Perform Med Rec) 1 each MISCELLANE ONCE PRN PRN Reason: Consult order Sodium Chloride (0.9 % Sodium Chloride Flush 3 Ml Syringe) 3 ml IVFLUSH QSHIFT [facility] Last Admin: 10/14/22 08:20 Dose: 3 ml Documented By: SHAYY Tamsulosin HCl (Tamsulosin Hcl 0.4 Mg Capsule) 0.8 mg PO DAILY [facility] Last Admin: 10/14/22 08:17 Dose: 0.8 mg Documented By: SHAYY Trazodone HCl (Trazodone Hcl 50 Mg Tablet) 50 mg PO BEDTIME [facility] Labs 10/14/22 06:17 10/14/22 06:17 Labs: Laboratory Results - last 24 hr 10/13/22 10/13/22 10/13/22 19:04 19:04 19:04 MCV 80.7 MCH 26.5 L MCHC 32.8 RDW 14.8 Plt Count 350 MPV 10.2 Immature Gran % (Auto) Cancelled Neut % (Auto) Cancelled Lymph % (Auto) Cancelled [place] % (Auto) Cancelled Eos % (Auto) Cancelled Baso % (Auto) Cancelled Lymph # (Auto) Cancelled [place] # (Auto) Cancelled Eos # (Auto) Cancelled Baso # (Auto) Cancelled Abs Immat Gran (auto) Cancelled Absolute Neuts (auto) Cancelled Absolute Nucleated RBC 0.000 Nucleated RBC % (auto) 0.0 Neutrophils % (Manual) 75 H Band Neutrophils % 2 L Lymphocytes % (Manual) 7 L Monocytes % (Manual) 15 H Basophils % (Manual) Metamyelocytes % 1 Abs Neuts (Manual) 9.9 H Lymphocytes # (Manual) 0.9 L Monocytes # (Manual) 1.9 H Basophils # (Manual) Metamyelocytes # 0.1 Toxic Vacuolation Platelet Estimate NORMAL Large Platelets Plt Morphology Comment NORMAL RBC Morphology NOTED Polychromasia 1+ (0-2) Ovalocytes Acanthocytes (Spur) Anion Gap 16 Estim Creat Clear Calc 27.9 Estimated GFR 38 Random Glucose 108 Lactic Acid Calcium 9.5 Troponin I High Sens 10.5 Urine Color Urine Appearance Urine pH Ur Specific [place] Urine Protein Urine Glucose (UA) Urine Ketones Urine Blood Urine Nitrite Ur Leukocyte Esterase Urine RBC Urine WBC Ur Squamous Epith Cells Urine Bacteria Hyaline Casts COVID-19 (MARICRUZ) COVID-19 Clin Com Influenza Type A (BRIAN) Influenza Type B (BRIAN) Influenza A & B Note 10/13/22 10/13/22 10/13/22 19:04 19:04 19:04 MCV MCH MCHC RDW Plt Count MPV Immature Gran % (Auto) Neut % (Auto) Lymph % (Auto) [place] % (Auto) Eos % (Auto) Baso % (Auto) Lymph # (Auto) [place] # (Auto) Eos # (Auto) Baso # (Auto) Abs Immat Gran (auto) Absolute Neuts (auto) Absolute Nucleated RBC Nucleated RBC % (auto) Neutrophils % (Manual) Band Neutrophils % Lymphocytes % (Manual) Monocytes % (Manual) Basophils % (Manual) Metamyelocytes % Abs Neuts (Manual) Lymphocytes # (Manual) Monocytes # (Manual) Basophils # (Manual) Metamyelocytes # Toxic Vacuolation Platelet Estimate Large Platelets Plt Morphology Comment RBC Morphology Polychromasia Ovalocytes Acanthocytes (Spur) Anion Gap Estim Creat Clear Calc Estimated GFR Random Glucose Lactic Acid Calcium Troponin I High Sens Urine Color Yellow Urine Appearance Cloudy Urine pH 7.5 Ur Specific [place] 1.015 Urine Protein 100 (2+) H Urine Glucose (UA) Negative Urine Ketones Negative Urine Blood Small (1+) H Urine Nitrite Positive H Ur Leukocyte Esterase Large (3+) H Urine RBC 3-5 H Urine WBC >50 H Ur Squamous Epith Cells 0-2 Urine Bacteria 4+ Hyaline Casts 6-10 COVID-19 (MARICRUZ) Negative COVID-19 Clin Com See Note Influenza Type A (BRIAN) Negative Influenza Type B (BRIAN) Negative Influenza A & B Note See Note 10/13/22 10/14/22 10/14/22 21:14 06:17 06:17 MCV 83.3 MCH 26.7 L MCHC 32.0 RDW 14.6 Plt Count 332 MPV 10.7 Immature Gran % (Auto) Cancelled Neut % (Auto) Cancelled Lymph % (Auto) Cancelled [place] % (Auto) Cancelled Eos % (Auto) Cancelled Baso % (Auto) Cancelled Lymph # (Auto) Cancelled [place] # (Auto) Cancelled Eos # (Auto) Cancelled Baso # (Auto) Cancelled Abs Immat Gran (auto) Cancelled Absolute Neuts (auto) Cancelled Absolute Nucleated RBC 0.000 Nucleated RBC % (auto) 0.0 Neutrophils % (Manual) 68 Band Neutrophils % 8 H Lymphocytes % (Manual) 6 L Monocytes % (Manual) 16 H Basophils % (Manual) 1 Metamyelocytes % 1 Abs Neuts (Manual) 7.6 Lymphocytes # (Manual) 0.6 L Monocytes # (Manual) 1.6 H Basophils # (Manual) 0.1 Metamyelocytes # 0.1 Toxic Vacuolation PRESENT Platelet Estimate NORMAL Large Platelets PRESENT Plt Morphology Comment NOTED RBC Morphology NOTED Polychromasia Ovalocytes 1+ (5-14) Acanthocytes (Spur) 1+ (0-2) Anion Gap 13 Estim Creat Clear Calc 33.2 Estimated GFR 47 Random Glucose 73 Lactic Acid 1.2 Calcium 9.0 Troponin I High Sens Urine Color Urine Appearance Urine pH Ur Specific [place] Urine Protein Urine Glucose (UA) Urine Ketones Urine Blood Urine Nitrite Ur Leukocyte Esterase Urine RBC Urine WBC Ur Squamous Epith Cells Urine Bacteria Hyaline Casts COVID-19 (MARICRUZ) COVID-19 Clin Com Influenza Type A (BRIAN) Influenza Type B (BRIAN) Influenza A & B Note Assessment and Plan (1) Acute UTI: Status: Acute (2) JORDY (acute kidney injury): Status: Acute (3) Fall: Status: Acute Plan 87-year-old male with pertinent history of essential hypertension, mood disorder, mixed hyperlipidemia, s/p suprapubic catheter, dementia was brought to the emergency department for evaluation after a fall. #. Sepsis due to acute UTI: BC and Ucx pending. Continue Rocephin D2 #. Fall, ?mechanical vs other: Unclear history. CT head without any acute abnormality. #. Acute kidney injury versus chronic kidney disease., likely ATN from sepsis, getting better. IVF and recheck tomorrow #. Essential hypertension: continue Norvasc, HCTZ, Atenolol #. Mixed hyperlipidemia: Lipitor #. Dementia, unspecified: Maintain sleep-wake cycle #. Mood disorder: On trazodone Med rec pending PT eval tomorrow DVT prophylaxis: Lovenox 30 mg daily Full Code. Readdress code status with son in a.m. Cardiac diet Need for inaptient; Sepsis needing IV Abx, JORDY needing IVF Time Spent With Patient Time: Total time managing care of this patient today ____ minutes. Quality Stroke Does the patient have a stroke diagnosis?: No VTE Prior VTE?: No VTE Risk Level:: Medical - moderate - high VTE Device Contraindication: Treatment Not Indicated VTE Drug Contraindication: N/A - Med Ordered
--- NOTE | 2022-10-14 11:21 | MHC.EDTECH ---
patient washed and cleaned , bed change and patient reposition, oral hygiene done. patient relaxing watching TV.
--- NOTE | 2022-10-14 16:17 | MHC.CM.PN ---
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
--- NOTE | 2022-10-14 16:33 | PC.NURSE ---
Pt continues to rest quietly in bed offering no complaints. Call ken within reach
--- NOTE | 2022-10-14 18:04 | PC.NURSE ---
Pt ambulated to bathroom using walker and one assist.
[2022-10-14] MEDS: cefTRIAXone sodium 1 GM in 0.9 % Sodium Chloride 50 ML IV (21:53)
[2022-10-14] MEDS: Atorvastatin Calcium 40 MG TABLET PO (21:54)
[2022-10-14] MEDS: Enoxaparin Sodium 30 MG/0.3 ML SYRINGE SUBCUT (21:54)
[2022-10-14] MEDS: traZODone HCL 50 MG TABLET PO (21:56)
--- NOTE | 2022-10-14 22:00 | PC.NURSE ---
pt medicated according to mar. pt resting comfortably on stretcher at this time. pt states no new needs at this time
[2022-10-15] MEDS: 0.9 % Sodium Chloride Flush 3 ML SYRINGE IVFLUSH ×2 (00:55→23:43)
[2022-10-15 02:46] VITALS: BP 106/58; PULSE 65; RESP 14; TEMP 36.9; O2SAT 95
[2022-10-15 05:04] LABS: Anion Gap 12 (12-20); Blood Urea Nitrogen 33 mg/dL (9-16); Carbon Dioxide 24 mmol/L (22-29); Chloride 103 mmol/L (96-108); Creatinine Clr Calc Pharmacy 38.5; Estimated Glomerular Filt Rate 55; Glucose Random 81 mg/dL (60-115); Potassium 3.4 mmol/L (3.3-5.1); Sodium 136 mmol/L (135-145)
[2022-10-15 05:22] VITALS: BP 130/64; PULSE 67; RESP 14; O2SAT 96
--- NOTE | 2022-10-15 07:16 | PC.NURSE ---
assumed care of patient, pt aox3, calm and cooperative, VSS, awaiting inpt bed
[2022-10-15] MEDS: atenoloL 50 MG TABLET PO (07:19)
[2022-10-15] MEDS: amLODIPine Besylate 5 MG TABLET PO (07:19)
[2022-10-15] MEDS: hydroCHLOROthiazide 25 MG TABLET PO (07:20)
[2022-10-15] MEDS: Tamsulosin HCL 0.4 MG CAPSULE 0.8 MG PO (07:20)
--- NOTE | 2022-10-15 08:54 | P.CDIC_ITS ---
CDI Concurrent Query Documentation Clarification: PHYSICIAN'S DOCUMENTATION REQUEST Date of Query: 10/15/22 0854 Patient Name: Emre Arevalo Admit Date: 10/13/22 Dear Doctor, A review of the medical record indicates additional documentation may be needed. Please review below and update the documentation accordingly. Clinical Indicators: Documentation includes the conditions of UTI and suprapubic catheter. Additional clinical indicators in the record include: Risk Factors/Clinical Indicators/Treatments Treated with IV Rocephin UA positive Urine culture pending Please clarify the relationship between these conditions: * Yes, UTI is related to / associated with / due to suprapubic catheter * No, UTI is not related to / associated with / due to suprapubic catheter * Unable to determine Use of terms such as suspected, likely, concern for, or probable (associated with a specific diagnosis that is being evaluated, monitored, or treated as if it exists) are acceptable and can be coded in the inpatient setting, when documented at the time of discharge. Thank you, Preethi Quinn RN Extension: [phone] Please use your independent medical judgment in providing your response. THIS QUERY IS PART OF THE PERMANENT MEDICAL RECORD Provider Response: Other Other Diagnosis: UTI associated with catheter
--- NOTE | 2022-10-15 09:51 | P.DS_ITS ---
DS: Providers Provider Date of Service: 10/15/22 Date of admission: 10/13/22 20:56 Primary care physician: Unknown Physician DS: Diagnosis Discharge Diagnosis (1) Acute UTI: Status: Acute (2) JORDY (acute kidney injury): Status: Acute (3) Fall: Status: Acute DS: Summary Hospital Course Hospital Course: Chief Complaint: Fall This is a 87-year-old male with pertinent history of essential hypertension, mood disorder, mixed hyperlipidemia, s/p suprapubic catheter, dementia was brought to the emergency department for evaluation after a fall.? Patient is a poor historian and does not know why he is here.? History was obtained by EMS and ER provider.? Son was here earlier at the bedside as per ER provider, prior to my evaluation.? Patient apparently had 2 episodes of fall and he was brought here to the ER.? Unclear if he lost consciousness or had rhythmic jerking movement of extremities.? Unable to obtain review of systems. In the emergency department, bladder scan revealed greater than 1 L urine and suprapubic catheter was replaced Hospital course: Sepsis due to acute UTI: BC and Ucc so far no growth. No fever, WBC normal. chest ct scan reviewed by Pulmonary: Possible infiltrate versus lesion: Discussed with patient daughter in detail length currently she defer workup for above pulmonary findings out patiently. ? Fall -possible mechnical, Unclear history.no orthostasis,? CT head without any acute abnormality. PT recommends-rehab . ? Acute kidney injury versus chronic kidney disease., likely ATN from sepsis, has resolved with IVF, Cr now 1.24. plan: Complete course of antibiotics. chest ct scan reviewed by Pulmonary: Possible infiltrate versus lesion: Further workup outpatient. Monitor renal function and electrolyte outpatient. Above management discussed with patient and his daughter in detail length she understand and in agreement with the above plan, time spent 50 minute. Time Spent with Patient Time attestation: Total time managing care of this patient today ____ minutes. Discharge coordination time: Greater than 30 minutes Quality: Safe Use of Opioids Does Pt have an Active Cancer Diagnosis on the Problem List?: No Quality: Stroke Does the patient have a stroke diagnosis?: No Physical Exam Vital Signs: Vital Signs: Last Vital Signs Temp 98.5 F 10/15/22 02:46 Pulse 67 10/15/22 05:22 Resp 14 02/06/23 05:22 BP 130/64 10/15/22 05:22 Pulse Ox 96 10/15/22 05:22 O2 Del Method 10/15/22 05:22 BMI result Body Mass Index 24.9 DS: Data Data Completed and Pending Labs on day of discharge: Laboratory Results - last 24 hr 10/15/22 04:19 Sodium 136 Potassium 3.4 Chloride 103 Carbon Dioxide 24 Anion Gap 12 BUN 33 H Creatinine 1.24 Estim Creat Clear Calc 38.5 Estimated GFR 55 Random Glucose 81 Calcium 9.0 Preliminary micro results at discharge 10/14/22 05:50 Blood Culture - Preliminary Blood - Venous No growth after 24 hours. 10/14/22 05:50 Blood Culture - Preliminary Blood - Venous No growth after 24 hours. 10/13/22 20:20 Urine Culture - Preliminary Urine clean catch - Urine clemons top Culture in progress. Discharge Plan Discharge Anticipated Discharge Date/Time: 10/15/22 10:00 Patient Disposition: Home, Self-Care Discharge Diagnosis: uti, sepsis, fall, possible mild penumonia Referrals: [facility] [Outside] - 1 Week Marycarmen Maddox MD [Physician] - 1 Week (follow up outpatient) [facility] [Physician] - 1 Week Discharge Medications: New cefuroxime axetil 500 mg tablet 500 mg PO BID Qty: 14 0RF Continued atorvastatin 40 mg tablet 1 tab PO DAILY trazodone 50 mg tablet 1 tab PO BEDTIME amlodipine 5 mg tablet 1 tab PO DAILY tamsulosin 0.4 mg capsule 2 cap PO DAILY hydrochlorothiazide 25 mg tablet 1 tab PO DAILY atenolol 50 mg tablet 1 tab PO DAILY Discharge Orders: Discharge Order (Routine); Ordered 10/16/22 Ordered By: Tanner Nash Diet: Advance to usual diet Activity on Discharge: As tolerated Stand Alone Forms: Patient Portal Discharge page Care Plan Goals: Full recovery from UTI Health Concerns: UTI, fall, sepsis Plan of Treatment: Take cefuroxime (Ceftin) for UTI/sepsis,possible pulmonary infiltrate -switched to po antibiotics, also discussed with patient's daughter in detail length about possible infiltrate versus lung lesion in the right-sided -she decided onsider further workup out patiently and follow up with your primary care doctor within a week, call for appointment. Also follow up with Pulmonary outpatient. Assessment: As above Discharge Date/Time: 10/16/22 18:05
--- NOTE | 2022-10-15 10:26 | P.PNIM_ITS ---
Subjective Subjective Date of Service: 10/15/22 Interval History: f/u on sespis, uti, marbella speaks mostly pashto but able to get by but understand enough salvadorean, voice no new issues, says he feels fine, Physical Exam Vital Signs: Vital Signs: Last Vital Signs Temp 98.5 F 10/15/22 02:46 Pulse 67 10/15/22 05:22 Resp 14 10/15/22 05:22 BP 130/64 10/15/22 05:22 Pulse Ox 96 10/15/22 05:22 O2 Del Method 10/15/22 05:22 BMI result Body Mass Index 24.9 Const: Other: General: AO X 2, no acute distress Resp: CTA bilateral CVS: S1,S2,RRR GI: +BS, NT, no distention Skin: No rash Neuro: motor grossly intact Psych: appropriate affect Objective Data Active Medications Acetaminophen (Acetaminophen 325 Mg Tablet) 650 mg PO Q6H PRN PRN Reason: Pain, Mild (Pain Scale 1-3) Amlodipine Besylate (Amlodipine Besylate 5 Mg Tablet) 5 mg PO DAILY [facility]; Protocol Last Admin: 10/15/22 07:19 Dose: 5 mg Documented By: ANTONI Atenolol (Atenolol 50 Mg Tablet) 50 mg PO DAILY [facility]; Protocol Last Admin: 10/15/22 07:19 Dose: 50 mg Documented By: ANTONI Atorvastatin Calcium (Atorvastatin Calcium 40 Mg Tablet) 40 mg PO BEDTIME [facility] Last Admin: 10/14/22 21:54 Dose: 40 mg Documented By: CHAVA Enoxaparin Sodium (Enoxaparin Sodium 30 Mg/0.3 Ml Syringe) 30 mg SUBCUT Q24H [facility] Last Admin: 10/14/22 21:54 Dose: 30 mg Documented By: CHAVA Hydrochlorothiazide (Hydrochlorothiazide 25 Mg Tablet) 25 mg PO DAILY [facility]; Protocol Last Admin: 10/15/22 07:20 Dose: 25 mg Documented By: ANTONI Ceftriaxone Sodium 1 gm/ (Sodium Chloride) 50 mls @ 100 mls/hr IV Q24H [facility] Last Infusion: 10/14/22 23:00 Dose: 0 mls/hr Documented By: CHAVA Melatonin (Melatonin 3 Mg Tablet) 6 mg PO BEDTIME PRN PRN Reason: Insomnia Ondansetron HCl (Ondansetron Hcl 4 Mg/2 Ml Vial) 4 mg IVPUSH Q8H PRN PRN Reason: Nausea and Vomiting Pharmacy Consult (Consult Rx Perform Med Rec) 1 each MISCELLANE ONCE PRN PRN Reason: Consult order Sodium Chloride (0.9 % Sodium Chloride Flush 3 Ml Syringe) 3 ml IVFLUSH QSHIFT [facility] Last Admin: 10/15/22 07:23 Dose: Not Given Documented By: ANTONI Non-Admin Reason: IV Running Tamsulosin HCl (Tamsulosin Hcl 0.4 Mg Capsule) 0.8 mg PO DAILY [facility] Last Admin: 10/15/22 07:20 Dose: 0.8 mg Documented By: LUIS-WILLIAMS Trazodone HCl (Trazodone Hcl 50 Mg Tablet) 50 mg PO BEDTIME [facility] Last Admin: 10/14/22 21:56 Dose: 50 mg Documented By: CHAVA Labs 10/14/22 06:17 10/15/22 04:19 Labs: Laboratory Results - last 24 hr 10/15/22 04:19 Anion Gap 12 Estim Creat Clear Calc 38.5 Estimated GFR 55 Random Glucose 81 Calcium 9.0 Microbiology Microbiology Results: Microbiology 10/14/22 05:50 Blood Culture - Preliminary Blood - Venous No growth after 24 hours. 10/14/22 05:50 Blood Culture - Preliminary Blood - Venous No growth after 24 hours. 10/13/22 20:20 Urine Culture - Preliminary Urine clean catch - Urine clemons top Culture in progress. Assessment and Plan (1) Concussion without loss of consciousness: Status: Acute (2) Fall: Status: Acute (3) Acute UTI: Status: Acute (4) MARBELLA (acute kidney injury): Status: Acute Plan 87-year-old male with pertinent history of essential hypertension, mood disorder, mixed hyperlipidemia, s/p suprapubic catheter, dementia was brought to the emergency department for evaluation after a fall. #. Sepsis due to acute UTI: BC and Ucx pending. Continue Rocephin D3, Cultures thus far negative, can switch to oral ceftin at dischage #. Fall, ?mechanical vs other: Unclear history. CT head without any acute abnormality. #. Acute kidney injury versus chronic kidney disease., likely ATN from sepsis, getting better, resolved. Cr 1.2 today #. Essential hypertension: continue Norvasc, HCTZ, Atenolol #. Mixed hyperlipidemia: Lipitor #. Dementia, unspecified: Maintain sleep-wake cycle #. Mood disorder: On trazodone Med rec pending PT recommending STR, will discuss with CM and if family wants to take home would discharge to DVT prophylaxis: Lovenox 30 mg daily Full Code. Readdress code status with son in a.m. Cardiac diet Need for inaptient; Sepsis needing IV Abx, MARBELLA needing IVF Time Spent With Patient Time: Total time managing care of this patient today ____ minutes. Quality Stroke Does the patient have a stroke diagnosis?: No VTE Prior VTE?: No VTE Risk Level:: Medical - moderate - high VTE Device Contraindication: Treatment Not Indicated VTE Drug Contraindication: N/A - Med Ordered
--- NOTE | 2022-10-15 16:00 | MHC.CM.PN ---
BREA CONTACTED PTS DAUGHTER AND INFORMED HER STR HAD BEEN RECOMMENDED FOR THIS PT SHE INITIALLY SAYS SHE WOULD PREFER HE WENT HOME WITH [facility] FOR SN AND PT HOWEVER WHEN SHE LEARNED IT WOULD BE TODAY, SHE CHANGED HER MIND AND ASKED FOR STR SHE IS AGREEABLE TO REFERRALS BEING BROADCAST SHE KNOWS HIS INSURANCE IS A BARRIER
--- NOTE | 2022-10-15 16:21 | PC.NURSE ---
patient reposiditoned in bed, helped with feeding, daughter updated on plan of care
[2022-10-15] MEDS: Atorvastatin Calcium 40 MG TABLET PO (21:34)
--- NOTE | 2022-10-15 21:34 | PC.NURSE ---
pt medicated according to mar. pt sitting up in stretcher eating dinner. pt needed assistance opening food items on tray. once food items opened for pt. pt ate well from provided tray
[2022-10-15] MEDS: traZODone HCL 50 MG TABLET PO (21:35)
[2022-10-15] MEDS: Enoxaparin Sodium 30 MG/0.3 ML SYRINGE SUBCUT (21:35)
[2022-10-15] MEDS: cefTRIAXone sodium 1 GM in 0.9 % Sodium Chloride 50 ML IV (21:35)
[2022-10-15 21:39] VITALS: BP 119/57; PULSE 70; RESP 17; TEMP 37.1; O2SAT 97
[2022-10-15 21:58] VITALS: BP 105/62; PULSE 70; RESP 16; TEMP 36.8; O2SAT 96
[2022-10-16] VITALS (9 sets, daily range): BP systolic 95–160; BP diastolic 50–79; PULSE 66–75; RESP 12–16; TEMP 36.4–36.9; O2SAT 95–98
--- NOTE | 2022-10-16 04:18 | PC.NURSE ---
pt accidentally removed iv from L AC. pt apologetic at this time. this rn placed new iv 20 in R AC. flushed well and tolerated iv. iv wrapped with gauze roll to secure more efficiently. pt calm and cooperative at this time
[2022-10-16] MEDS: 0.9 % Sodium Chloride Flush 3 ML SYRINGE IVFLUSH (07:12)
[2022-10-16] MEDS: amLODIPine Besylate 5 MG TABLET PO (09:55)
[2022-10-16] MEDS: hydroCHLOROthiazide 25 MG TABLET PO (09:55)
[2022-10-16] MEDS: atenoloL 50 MG TABLET PO (09:55)
[2022-10-16] MEDS: Tamsulosin HCL 0.4 MG CAPSULE 0.8 MG PO (09:55)
--- NOTE | 2022-10-16 13:58 | PM.DS ---
DS: Providers Provider Date of Service: 10/16/22 Date of admission: 10/13/22 20:56 Primary care physician: Tana Gomez MD Consults: 10/16/22 10:59 Consult to Pulmonology Routine Consulting Provider: Marycarmen Maddox Reason for consultation: possible lung lesion Has provider been notified: No DS: Diagnosis Discharge Diagnosis (1) Concussion without loss of consciousness: Status: Acute (2) Fall: Status: Acute (3) Acute UTI: Status: Acute (4) JORDY (acute kidney injury): Status: Acute (5) Pneumonia: Status: Acute DS: Summary Hospital Course Hospital Course: Chief Complaint: Fall This is a 87-year-old male with pertinent history of essential hypertension, mood disorder, mixed hyperlipidemia, s/p suprapubic catheter, dementia was brought to the emergency department for evaluation after a fall.? Patient is a poor historian and does not know why he is here.? History was obtained by EMS and ER provider.? Son was here earlier at the bedside as per ER provider, prior to my evaluation.? Patient apparently had 2 episodes of fall and he was brought here to the ER.? Unclear if he lost consciousness or had rhythmic jerking movement of extremities.? Unable to obtain review of systems. In the emergency department, bladder scan revealed greater than 1 L urine and suprapubic catheter was replaced Hospital course: Sepsis due to acute UTI: BC and Ucc so far no growth. No fever, WBC normal. chest ct scan reviewed by Pulmonary: Possible infiltrate versus lesion: Discussed with patient daughter in detail length currently she defer workup for above pulmonary findings out patiently. ? Fall -possible mechnical, Unclear history.no orthostasis,? CT head without any acute abnormality. PT recommends-rehab . ? Acute kidney injury versus chronic kidney disease., likely ATN from sepsis, has resolved with IVF, Cr now 1.24. plan: Complete course of antibiotics. chest ct scan reviewed by Pulmonary: Possible infiltrate versus lesion: Further workup outpatient. Monitor renal function and electrolyte outpatient. Above management discussed with patient and his daughter in detail length she understand and in agreement with the above plan, time spent 50 minute. Time Spent with Patient Time attestation: Total time managing care of this patient today ____ minutes. Discharge coordination time: Greater than 30 minutes Quality: Safe Use of Opioids Does Pt have an Active Cancer Diagnosis on the Problem List?: No Quality: Stroke Does the patient have a stroke diagnosis?: No Physical Exam Vital Signs: Vital Signs: Last Vital Signs Temp 98.3 F 10/16/22 07:13 Pulse 72 10/16/22 11:06 Resp 16 10/16/22 08:35 BP 145/70 H 10/16/22 11:06 Pulse Ox 95 10/16/22 08:35 O2 Del Method 10/16/22 08:35 BMI result Body Mass Index 24.9 General: AO X 3, no acute distress Resp:? CTA bilateral CVS: S1,S2,RRR GI: +BS, NT, no distention Skin: No rash Neuro:? motor grossly intact Psych: appropriate affect ? DS: Data Data Completed and Pending Labs on day of discharge: Preliminary micro results at discharge 10/14/22 05:50 Blood Culture - Preliminary Blood - Venous No growth after 48 hours. 10/14/22 05:50 Blood Culture - Preliminary Blood - Venous No growth after 48 hours. Imaging Chest x-ray: Radiologist's impression: ITS Impressions Cervical Spine CT 10/13/22 18:50 IMPRESSION: Negative acute noncontrast CT the brain. No acute fracture or dislocation of the cervical spine. Partial visualization of a probable right upper lung lesion. CT of the chest is recommended. This may be done an outpatient basis. Malignancy needs to be considered. Head CT 10/13/22 18:50 IMPRESSION: Negative acute noncontrast CT the brain. No acute fracture or dislocation of the cervical spine. Partial visualization of a probable right upper lung lesion. CT of the chest is recommended. This may be done an outpatient basis. Malignancy needs to be considered. Chest X-Ray 10/13/22 19:25 IMPRESSION: No acute intrathoracic disease. Chest CT 10/13/22 20:56 IMPRESSION: This exam is abnormal. Right upper lung lesion which appears spiculated. Malignancy needs to be suspected. There is also an area of concern lower in the upper lung zone adjacent the minor fissure. Malignant seen here cannot be excluded. Some mild central adenopathy could be reactive but malignancy also would be in the differential. Recommendation is PET/CT to further evaluate. Discharge Plan Discharge Anticipated Discharge Date/Time: 10/15/22 10:00 Patient Disposition: Home, Self-Care Discharge Diagnosis: uti, sepsis, fall, possible mild penumonia Referrals: [facility] [Outside] - 1 Week Marycarmen Maddox MD [Physician] - 1 Week (follow up outpatient) [facility] [Physician] - 1 Week Discharge Medications: New cefuroxime axetil 500 mg tablet 500 mg PO BID Qty: 14 0RF Continued atorvastatin 40 mg tablet 1 tab PO DAILY trazodone 50 mg tablet 1 tab PO BEDTIME amlodipine 5 mg tablet 1 tab PO DAILY tamsulosin 0.4 mg capsule 2 cap PO DAILY hydrochlorothiazide 25 mg tablet 1 tab PO DAILY atenolol 50 mg tablet 1 tab PO DAILY Discharge Orders: Discharge Order (Routine); Ordered 10/16/22 Ordered By: Tanner Nash Diet: Advance to usual diet Activity on Discharge: As tolerated Stand Alone Forms: Patient Portal Discharge page Care Plan Goals: Full recovery from UTI Health Concerns: UTI, fall, sepsis Plan of Treatment: Take cefuroxime (Ceftin) for UTI/sepsis,possible pulmonary infiltrate -switched to po antibiotics, also discussed with patient's daughter in detail length about possible infiltrate versus lung lesion in the right-sided -she decided onsider further workup out patiently and follow up with your primary care doctor within a week, call for appointment. Also follow up with Pulmonary outpatient. Assessment: As above
--- NOTE | 2022-10-16 14:11 | PC.NURSE ---
ASSUMED CARE OF THIS PT AT 1400.
--- NOTE | 2022-10-16 14:14 | MHC.CM.PN ---
[facility] is able to offer a bed. Patient can leave at 430pm. Audrey PEREZ booked. [facility] with chart. Patient, Regina daughter, Christy MICHELE and Dr Nash aware. Contineue to monitor for d/c needs.
--- NOTE | 2022-10-16 17:16 | PC.NURSE ---
WARM HAND OVER GIVEN TO ROCÍO HAYES AT [facility]. PT AWAITING TRANSPORTATION.
== END 2022-10-16 18:05 | disposition home or self-care (01) | DRG 698 ==
LOC: HO.ED 20:19 → HO.EDOVER 21:01 → HO.IMC 10-15 08:45 → HO.EDOVER 10-15 08:53
PROVIDERS: Internal Medicine; Nurse Practitioner Family; Admitting Provider Student in an Organized Health Care Education/Training Program; Emergency Provider Internal Medicine; PCP Family Medicine; Visit Provider Internal Medicine
DX: T83.518A Infection and inflammatory reaction due to other urinary catheter, initial encounter (principal); A41.9 Sepsis, unspecified organism; N17.0 Acute kidney failure with tubular necrosis; N39.0 Urinary tract infection, site not specified; C34.11 Malignant neoplasm of upper lobe, right bronchus or lung; R29.6 Repeated falls; S06.0X0A Concussion without loss of consciousness, initial encounter; E78.2 Mixed hyperlipidemia; W19.XXXA Unspecified fall, initial encounter; Z91.81 History of falling; F03.90 Unspecified dementia, unspecified severity, without behavioral disturbance, psychotic disturbance, mood disturbance, and anxiety; I10 Essential (primary) hypertension; Z20.822 Contact with and (suspected) exposure to COVID-19; Z88.2 Allergy status to sulfonamides; Z79.899 Other long term (current) drug therapy
CPT/HCPCS: 36415; 70450; 71045; 71250; 72125; 80048; 81001; 83605; 84484; 85007; 85027; 87040; 87086; 87088; 87186; 87502; 87635; 93005; 97162; 99285; J0696; J1650

== ENCOUNTER 2023-08-25 23:59 | Outpatient (BNV) | payer MEDICARE, SELFPAY | END 2023-08-28 23:59 | PROVIDERS: PCP Family Medicine; Visit Provider Internal Medicine | DX: I21.A1 Myocardial infarction type 2 (principal); E87.1 Hypo-osmolality and hyponatremia | CPT/HCPCS: 99223 ==

== ENCOUNTER 2023-08-25 23:59 | Outpatient (BNV) | payer MEDICARE, SELFPAY | END 2023-08-30 23:59 | PROVIDERS: PCP Family Medicine; Visit Provider Internal Medicine | DX: I21.A1 Myocardial infarction type 2 (principal); E87.1 Hypo-osmolality and hyponatremia | CPT/HCPCS: 99233 ==